=== PATIENT | female | born 1940 | race Asian ===

== ENCOUNTER 2024-06-20 22:58 | Inpatient (IN) | payer MEDICARE, MEDICAID ==
[~2024-06-20] VITALS: Ht 144.8 cm; Wt 46.0 kg
[~2024-06-20 22:58] MED LIST: ACET-2247 PO; ALBU18HF12 IH; APIX5TAB PO; ATOR40TA71 PO; CALC-1085 PO; LOSA-381 PO; MAGN800O2 PO; MECL-302 PO; MONT-35 PO; PANT-31 PO; [UNRECOGNIZED DRUG - CODE] PO
[2024-06-21] MEDS ORDERED: ONDANSETRON HCL 4 MG/2 ML VIAL IVP PRN (00:15)
[2024-06-21] MEDS ORDERED: ACETAMINOPHEN 325 MG TABLET PO PRN (00:15)
[2024-06-21 00:28] LABS: BASOPHILS % (AUTO) 0.1 % (0.0-2.0); EOSINOPHILS % (AUTO) 0 % (1.0-6.0); HEMOGLOBIN 12.4 g/dL (12.0-16.0); LYMPHOCYTES # (AUTO) 0.9 K/uL (1.0-4.8); LYMPHOCYTES % (AUTO) 6.8 % (22.0-44.0); MEAN CORPUSCULAR HGB CONC 32.7 G/dL (31.0-37.0); MEAN CORPUSCULAR VOLUME 92 fL (80-100); MONOCYTES # (AUTO) 0.5 K/uL (0.1-1.0); MONOCYTES % (AUTO) 3.5 % (2.0-9.0); NEUTROPHILS # (AUTO) 11.7 K/uL (1.8-7.7); PLATELET COUNT (AUTO) 276 K/uL (150-450); RED BLOOD CELL COUNT(AUTO) 4.14 MIL/uL (4.00-5.20); RETICULOCYTE % (AUTO) 0.9 % (0.5-2.3)
[2024-06-21 00:33] LABS: NEUTROPHILS % (AUTO) 89.6 % (40.0-70.0)
[2024-06-21 00:36] LABS: ANION GAP 17 mmol/L (8-16); CALCIUM, TOTAL 10.6 mg/dL (8.8-10.5); CARBON DIOXIDE 30 mmol/L (22-29); CHLORIDE 100 mmol/L (98-107); CREATININE 1.99 mg/dL (0.60-1.30); GLOMERULAR FILTR. RATE CALC 24 mL/min (>60); GLUCOSE,RANDOM 206 mg/dL (70-110); SODIUM SERUM 147 mmol/L (136-145); UREA NITROGEN, BLOOD 41 mg/dL (7-18)
[2024-06-21] MEDS ORDERED: INSULIN LISPRO 100 UNITS/ML SQ PRN (00:45)
[2024-06-21] MEDS ORDERED: 0.9% SODIUM CHLORIDE 10 ML SYRINGE IVP PRN (00:45)
[2024-06-21 00:46] LABS: LIPASE 106 U/L (16-77); TROPONIN I-HIGH SENSITIVITY 14 ng/L (<51)
[2024-06-21 00:49] LABS: LACTIC ACID 7.5 mmol/L (0.4-2.0)
[2024-06-21 00:58] LABS: % IRON SATURATION 8.5 % (22-44)
[2024-06-21 01:01] LABS: B-TYPE NATRIURETIC PEPTIDE 111 pg/mL (0-100)
[2024-06-21 01:10] LABS: ALBUMIN 3.2 g/dL (3.4-5.0); BILIRUBIN,DIRECT 0.2 mg/dL (0.00-0.20); BILIRUBIN,TOTAL 0.6 mg/dL (0.1-1.0); TOTAL PROTEIN, SERUM 7.6 g/dL (6.4-8.2)
[2024-06-21] MEDS: SODIUM CHLORIDE 0.9% 1,400 ML IV ONE (01:42)
[2024-06-21] MEDS: CefTRIAXone 1 GM/DEXTROSE 50 ML IV SCH (01:42)
[2024-06-21] MEDS: PANTOPRAZOLE SODIUM 40 MG/VIAL IVP ONE (01:42)
[2024-06-21] MEDS: PANTOPRAZOLE SODIUM 80 MG in SODIUM CHLORIDE 0.9% 100 ML IV SCH (02:35)
[2024-06-21 04:47] LABS: TROPONIN I-HIGH SENSITIVITY 15 ng/L (<51)
[2024-06-21 05:33] VITALS: BP 146/78; PULSE 102; RESP 16; TEMP 97.7; O2SAT 98
[2024-06-21 08:00] VITALS: BP 107/54; PULSE 58; RESP 17; TEMP 97.7; O2SAT 98
[2024-06-21] MEDS: DOCUSATE SODIUM 100 MG CAPSULE PO SCH (09:00)
[2024-06-21 12:00] VITALS: BP 110/67; PULSE 77; RESP 17; TEMP 97.8; O2SAT 99
[2024-06-21 16:00] VITALS: BP 115/70; PULSE 65; RESP 18; TEMP 98.6; O2SAT 99
[2024-06-21 20:00] VITALS: BP 128/69; PULSE 94; RESP 18; TEMP 98.2; O2SAT 98
[2024-06-22] VITALS (7 sets, daily range): BP systolic 110–167; BP diastolic 57–85; PULSE 73–81; RESP 16–19; TEMP 97.4–98.2; O2SAT 95–100
[2024-06-22] MEDS ORDERED: SODIUM CHLORIDE 0.9% 500 ML IV ONE (00:16)
[2024-06-22 02:41] LABS: GLUCOMETER DEV NAME(LOC) 5N.1D; GLUCOSE,POINT OF CARE 114 MG/DL (70-110)
[2024-06-22 02:41] LABS: GLUCOMETER DEV NAME(LOC) 5N.1D; GLUCOSE,POINT OF CARE 127 MG/DL (70-110)
[2024-06-22 06:51] LABS: BASOPHILS % (AUTO) 0.4 % (0.0-2.0); EOSINOPHILS % (AUTO) 0.6 % (1.0-6.0); HEMATOCRIT 29.4 % (36-46); HEMOGLOBIN 9.8 g/dL (12.0-16.0); LYMPHOCYTES # (AUTO) 1.5 K/uL (1.0-4.8); LYMPHOCYTES % (AUTO) 14.4 % (22.0-44.0); MEAN CORPUSCULAR HEMOGLOBIN 30.8 pg (26.0-34.0); MEAN CORPUSCULAR HGB CONC 33.5 G/dL (31.0-37.0); MEAN CORPUSCULAR VOLUME 92 fL (80-100); MONOCYTES # (AUTO) 0.7 K/uL (0.1-1.0); MONOCYTES % (AUTO) 6.7 % (2.0-9.0); NEUTROPHILS # (AUTO) 7.9 K/uL (1.8-7.7); NEUTROPHILS % (AUTO) 77.9 % (40.0-70.0); PLATELET COUNT (AUTO) 222 K/uL (150-450); RED BLOOD CELL COUNT(AUTO) 3.19 MIL/uL (4.00-5.20); RED CELL DISTRIBUTION WIDTH 14.8 % (11.5-14.5); WHITE BLOOD COUNT (AUTO) 10.1 K/uL (4.5-11.0)
[2024-06-22 07:05] LABS: CALCIUM, TOTAL 9.2 mg/dL (8.8-10.5); CREATININE 0.91 mg/dL (0.60-1.30); MAGNESIUM 2.1 mg/dL (1.80-2.40); POTASSIUM 3.7 mmol/L (3.5-5.1)
[2024-06-22 09:16] LABS: GLUCOMETER DEV NAME(LOC) 5N.1D; GLUCOSE,POINT OF CARE 76 MG/DL (70-110)
[2024-06-22 12:45] LABS: GLUCOMETER DEV NAME(LOC) 5N.1D; GLUCOSE,POINT OF CARE 82 MG/DL (70-110)
[2024-06-22 17:55] LABS: GLUCOMETER DEV NAME(LOC) 5N.1D; GLUCOSE,POINT OF CARE 78 MG/DL (70-110)
[2024-06-22] MEDS: HydrALAZINE HCL 20 MG/ML VIAL IVP PRN (21:19)
[2024-06-22 21:51] LABS: GLUCOMETER DEV NAME(LOC) 5N.1D; GLUCOSE,POINT OF CARE 85 MG/DL (70-110)
[2024-06-23 05:25] VITALS: BP 141/80; PULSE 87; RESP 18; TEMP 97.8; O2SAT 98
[2024-06-23] MEDS: DEXTROSE 50%-WATER 25 GM/50 ML SYRINGE IVP PRN (06:15)
[2024-06-23 06:55] LABS: BASOPHILS % (AUTO) 0.4 % (0.0-2.0); EOSINOPHILS % (AUTO) 1.8 % (1.0-6.0); HEMATOCRIT 29.1 % (36-46); HEMOGLOBIN 9.6 g/dL (12.0-16.0); LYMPHOCYTES # (AUTO) 1.4 K/uL (1.0-4.8); LYMPHOCYTES % (AUTO) 19.8 % (22.0-44.0); MEAN CORPUSCULAR HEMOGLOBIN 30.7 pg (26.0-34.0); MEAN CORPUSCULAR HGB CONC 33.1 G/dL (31.0-37.0); MEAN CORPUSCULAR VOLUME 93 fL (80-100); MONOCYTES # (AUTO) 0.5 K/uL (0.1-1.0); MONOCYTES % (AUTO) 6.4 % (2.0-9.0); NEUTROPHILS % (AUTO) 71.6 % (40.0-70.0); PLATELET COUNT (AUTO) 226 K/uL (150-450); RED BLOOD CELL COUNT(AUTO) 3.14 MIL/uL (4.00-5.20); RED CELL DISTRIBUTION WIDTH 14.3 % (11.5-14.5)
[2024-06-23 07:24] LABS: ANION GAP 10 mmol/L (8-16); CALCIUM, TOTAL 8.2 mg/dL (8.8-10.5); CARBON DIOXIDE 24 mmol/L (22-29); CHLORIDE 107 mmol/L (98-107); CREATININE 0.79 mg/dL (0.60-1.30); GLOMERULAR FILTR. RATE CALC > 60 mL/min (>60); GLUCOSE,RANDOM 281 mg/dL (70-110); POTASSIUM 3.5 mmol/L (3.5-5.1); SODIUM SERUM 141 mmol/L (136-145); UREA NITROGEN, BLOOD 30 mg/dL (7-18)
[2024-06-23 08:00] VITALS: BP 117/60; PULSE 82; RESP 18; TEMP 98; O2SAT 98
[2024-06-23 08:10] LABS: GLUCOMETER DEV NAME(LOC) 5N.1D; GLUCOSE,POINT OF CARE 65 MG/DL (70-110)
[2024-06-23 08:10] LABS: GLUCOMETER DEV NAME(LOC) 5N.1D; GLUCOSE,POINT OF CARE 189 MG/DL (70-110)
[2024-06-23 12:00] VITALS: BP 129/74; PULSE 93; RESP 18; TEMP 98.2; O2SAT 97
[2024-06-23 12:07] LABS: GLUCOMETER DEV NAME(LOC) 5N.1D; GLUCOSE,POINT OF CARE 68 MG/DL (70-110)
[2024-06-23] MEDS: DEXTROSE 5%-0.45% SODIUM CHL 1,000 ML IV SCH (12:14)
[2024-06-23 20:26] LABS: GLUCOMETER DEV NAME(LOC) 5N.1D; GLUCOSE,POINT OF CARE 128 MG/DL (70-110)
[2024-06-23 21:57] VITALS: BP 129/71; PULSE 84; RESP 17; TEMP 98.4; O2SAT 97
[2024-06-24 00:01] LABS: GLUCOMETER DEV NAME(LOC) 5N.1D; GLUCOSE,POINT OF CARE 103 MG/DL (70-110)
== END 2024-06-23 22:30 | disposition short-term general hospital (02) | DRG 871 ==
LOC: EMS 23:20 → EDH 23:56 → 5S 06-21 05:03 → UNDODISIN 06-23 22:30
PROVIDERS: ADMIT Internal Medicine; ATTEND Internal Medicine
PROC: 0D9670Z Drainage of Stomach with Drainage Device, Via Natural or Artificial Opening (ICD-10-PCS; principal; 2024-06-21)
PROC: 05H933Z Insertion of Infusion Device into Right Brachial Vein, Percutaneous Approach (ICD-10-PCS; 2024-06-23)
DX: A41.9 Sepsis, unspecified organism (principal); E43 Unspecified severe protein-calorie malnutrition; G93.41 Metabolic encephalopathy; K29.71 Gastritis, unspecified, with bleeding; K31.1 Adult hypertrophic pyloric stenosis; N17.9 Acute kidney failure, unspecified; E87.0 Hyperosmolality and hypernatremia; K44.0 Diaphragmatic hernia with obstruction, without gangrene; R62.7 Adult failure to thrive; R65.20 Severe sepsis without septic shock; E11.22 Type 2 diabetes mellitus with diabetic chronic kidney disease; E11.65 Type 2 diabetes mellitus with hyperglycemia; E86.0 Dehydration; Z68.21 Body mass index [BMI] 21.0-21.9, adult; F03.90 Unspecified dementia, unspecified severity, without behavioral disturbance, psychotic disturbance, mood disturbance, and anxiety; K31.89 Other diseases of stomach and duodenum; I12.9 Hypertensive chronic kidney disease with stage 1 through stage 4 chronic kidney disease, or unspecified chronic kidney disease; N18.30 Chronic kidney disease, stage 3 unspecified; E78.00 Pure hypercholesterolemia, unspecified; F20.9 Schizophrenia, unspecified; F41.9 Anxiety disorder, unspecified; K21.9 Gastro-esophageal reflux disease without esophagitis; Z86.14 Personal history of Methicillin resistant Staphylococcus aureus infection
CPT/HCPCS: 36245; 36569; 71045; 74022; 74176; 76937; 80048; 80076; 82271; 82962; 83540; 83550; 83605; 83690; 83735; 83880; 84145; 84484; 85025; 85045; 85730; 86850; 86900; 86901; 86923; 87040; 93005; 99291; G0378; J0360; J0696; J2470; J7030; J7040; J7050; 36415-L1; 36415-TC